=== PATIENT | male | born 1945 | race Caucasian/White ===

== ENCOUNTER 2021-04-03 10:36 | Inpatient (IN) ==
[2021-04-03 14:38] LABS: ABS Basophils 0.1 10^3/ul (0-0.2); ABS Eosinophils 0.4 10^3/ul (0-0.6); ABS Lymphocytes 1.6 10^3/ul (1.0-4.8); ABS Monocytes 1.2 10^3/ul (0-0.8); Eosinophil % 3.7 %; Hematocrit 43 % (42-52); Hemoglobin 14.6 g/dL (14.0-18.0); Lymphocyte % 15.4 %; Mean Corpuscular HGB Conc 34 g/dL (31-36); Mean Corpuscular Hemoglobin 30 pg (27-31); Mean Corpuscular Volume 89 fL (80-94); Mean Platelet Volume 8.3 fL (7.4-10.4); Platelet Count 310 10^3/uL (150-450); Red Blood Count 4.86 10^6 /uL (4.18-5.48); Red Cell Distribution Width 14 % (10-15); White Blood Count 10.1 10^3/uL (3.5-10.8)
[2021-04-03 15:00] LABS: ALT 36 U/L (7-52); Albumin/Globulin Ratio 1.4 (1-3); Alkaline Phosphatase 133 U/L (35-149); Blood Urea Nitrogen 17 mg/dL (6-24); C Reactive Protein 25.08 mg/L (<8.01); CO2 Carbon Dioxide 25 mmol/L (22-32); Calcium 9.3 mg/dL (8.6-10.3); Chloride 100 mmol/L (101-111); EGFR African American 110.5 (>60); EGFR Non-African American 91.3 (>60); Globulin 2.9 g/dL (2-4); Glucose 103 mg/dL (70-100); Sodium 134 mmol/L (135-145); Total Protein 6.9 g/dL (6.4-8.9)
[2021-04-03 15:25] LABS: Anion Gap 9 mmol/L (2-11)
[2021-04-03] MEDS ORDERED: Iohexol 350 (CONTRAST) 500 ML MDV IV ONE (16:51)
[2021-04-03 17:30] LABS: Potassium Redraw 3.7 mmol/L (3.5-5.0)
[2021-04-03] MEDS ORDERED: Ondansetron 4 mg VIAL 2 MG/ML 2 ml VIAL IV PRN (20:51)
[2021-04-03] MEDS ORDERED: Lactated Ringers 1000 ml BAG 1,000 ML IV ONE (20:58)
[2021-04-03] MEDS ORDERED: Enoxaparin 40 MG/0.4 ML SYR SUBCUT SCH (22:00)
[2021-04-03 22:18] LABS: INR 1.17 (0.86-1.15)
[2021-04-04] MEDS: CMC:Alfuzosin ER 10 mg TAB.ER (NF) 10 MG TAB.ER PO SCH ×2 (04:48→17:10)
[2021-04-04] MEDS: Isosorbide Mononit ER 30mg TAB PO SCH (08:12)
[2021-04-04 08:23] LABS: ABS Basophils 0.1 10^3/ul (0-0.2); ABS Eosinophils 0.4 10^3/ul (0-0.6); ABS Lymphocytes 1.3 10^3/ul (1.0-4.8); ABS Monocytes 1.1 10^3/ul (0-0.8); ABS Neutrophils 6.3 10^3/ul (1.5-7.7); Eosinophil % 3.9 %; Hematocrit 42 % (42-52); Hemoglobin 14.2 g/dL (14.0-18.0); Lymphocyte % 13.8 %; Mean Corpuscular HGB Conc 34 g/dL (31-36); Mean Corpuscular Hemoglobin 30 pg (27-31); Mean Corpuscular Volume 89 fL (80-94); Mean Platelet Volume 7.7 fL (7.4-10.4); Platelet Count 271 10^3/uL (150-450); Red Blood Count 4.72 10^6 /uL (4.18-5.48); Red Cell Distribution Width 14 % (10-15); White Blood Count 9.1 10^3/uL (3.5-10.8)
[2021-04-04 08:40] LABS: Calcium 9.3 mg/dL (8.6-10.3); EGFR African American 88.9 (>60); EGFR Non-African American 73.5 (>60); Potassium 4.1 mmol/L (3.5-5.0)
[2021-04-04] MEDS ORDERED: Perflutren Lipid Microsphere 3 ML VIAL ONE ×2 (10:44)
[2021-04-04 14:49] LABS: Body Fluid Source Pleural Fluid
[2021-04-04 16:28] LABS: Body Fluid WBC 2006 /mcL
[2021-04-04 18:00] LABS: Body Fluid Mono 19 %; Body Fluid Total Cells Counted 200
[2021-04-04 18:01] LABS: Body Fluid Appearance Cloudy; Body Fluid Color Red
[2021-04-04] MEDS ORDERED: Enoxaparin 40 MG/0.4 ML SYR SUBCUT SCH (21:00)
[2021-04-05 06:50] LABS: ABS Basophils 0.1 10^3/ul (0-0.2); ABS Eosinophils 0.4 10^3/ul (0-0.6); ABS Lymphocytes 1.3 10^3/ul (1.0-4.8); ABS Monocytes 1.2 10^3/ul (0-0.8); ABS Neutrophils 6.7 10^3/ul (1.5-7.7); Eosinophil % 3.9 %; Hematocrit 43 % (42-52); Hemoglobin 14.5 g/dL (14.0-18.0); Lymphocyte % 13.9 %; Mean Corpuscular HGB Conc 34 g/dL (31-36); Mean Corpuscular Hemoglobin 30 pg (27-31); Mean Corpuscular Volume 89 fL (80-94); Mean Platelet Volume 8.1 fL (7.4-10.4); Platelet Count 273 10^3/uL (150-450); Red Blood Count 4.82 10^6 /uL (4.18-5.48); Red Cell Distribution Width 14 % (10-15); White Blood Count 9.7 10^3/uL (3.5-10.8)
[2021-04-05 07:07] LABS: Calcium 9.3 mg/dL (8.6-10.3); EGFR African American 88.9 (>60); EGFR Non-African American 73.5 (>60)
[2021-04-05] MEDS: Isosorbide Mononit ER 30mg TAB PO SCH (07:42)
[2021-04-05] MEDS ORDERED: Midazolam 10 mg/10 ml VIAL 1 mg/ml 10 ml VIAL (10 mg) ONE (08:12)
[2021-04-05] MEDS ORDERED: fentaNYL 100 mcg/2 ml 50 MCG/ML VIAL ONE (08:12)
[2021-04-05] MEDS ORDERED: Aspirin EC 81 mg TAB.EC (enteric coated) PO SCH (09:00)
[2021-04-05] MEDS ORDERED: Enoxaparin 40 MG/0.4 ML SYR SUBCUT SCH (17:00)
[2021-04-05] MEDS: CMC:Alfuzosin ER 10 mg TAB.ER (NF) 10 MG TAB.ER PO SCH (17:30)
[2021-04-06] MEDS: Isosorbide Mononit ER 30mg TAB PO SCH (08:11)
[2021-04-06 11:56] VITALS: BP 118/61
[2021-04-07 13:21] LABS: Fluid Type, Protein, Total PLEURAL FLUID; Total Protein, BF 4.4 g/dL
[2021-04-07 13:23] LABS: Lactate Dehydrogenase, BF 400 U/L
[2021-04-07] MEDS ORDERED: Enoxaparin 40 MG/0.4 ML SYR SUBCUT SCH (17:00)
[2021-04-21 09:13] LABS: BLYM Result Summary Positive; BLYM Tissue ID S21-7229-4
== END 2021-04-06 11:55 | disposition home or self-care (01) | DRG 841 ==
LOC: ED 10:36 → MED 22:03
PROVIDERS: ADMIT Hospitalist; ATTEND Hospitalist